=== PATIENT | male | born 1990 | race African-American/Black ===

== ENCOUNTER 2018-08-10 16:28 | Emergency (ER) | payer SELFPAY | END 2018-08-10 19:30 | disposition left against medical advice (07) | LOC: ER 16:28 | DX: R51 Headache (principal); M79.10 Myalgia, unspecified site; Z53.21 Procedure and treatment not carried out due to patient leaving prior to being seen by health care provider ==

== ENCOUNTER 2018-08-11 05:18 | Emergency (ER) | payer SELFPAY ==
[~2018-08-11] VITALS: Ht 182.9 cm; Wt 66.0 kg
[2018-08-11] MEDS ORDERED: DIPHENHYDRAMINE 50MG/ML VIAL IV ONE (06:45)
[2018-08-11] MEDS ORDERED: SODIUM CHLORIDE 0.9% 1,000 ML IV ONE (06:45)
[2018-08-11] MEDS ORDERED: DEXAMETHASONE 10 MG/ML VIAL IV ONE (06:45)
[2018-08-11] MEDS ORDERED: FAMOTIDINE 20MG/2ML VIAL IV ONE (06:45)
[2018-08-11 08:12] VITALS: BP 115/59
== END 2018-08-11 08:16 | disposition home or self-care (01) ==
LOC: ER 05:18
DX: L50.9 Urticaria, unspecified (principal); F17.200 Nicotine dependence, unspecified, uncomplicated
CPT/HCPCS: 99283; J1100; J1200; J3490; J7030